=== PATIENT | male | born 1980 | race Caucasian/White ===

== ENCOUNTER → 2017-01-02 | Outpatient (CLI) | payer BC ==
[2017-01-02 19:39] LABS: BASO % 0.7 % (0.0-1.0); EOS # 0.1 K/mm3 (0.0-0.50); LARGE UNSTAINED CELL # 0.2 K/mm3 (0.0-0.4); LARGE UNSTAINED CELL % 2.6 % (0.0-4.0); LYMPH # 2.1 K/mm3 (1.5-4.5); LYMPH % 29.4 % (24.0-44.0); MEAN CORPUSCULAR HEMOGLOBIN 30.5 pg (27.0-33.0); MEAN CORPUSCULAR HGB CONC 35.1 g/dl (32.0-36.5); MEAN CORPUSCULAR VOLUME 86.7 fl (80.0-96.0); MONO # 0.3 K/mm3 (0.0-0.8); MONO % 4.7 % (0.0-5.0); NEUTROPHILS # 4.2 K/mm3 (1.8-7.7); NEUTROPHILS % 60.7 % (36.0-66.0); PLATELET COUNT, AUTOMATED 182 k/mm3 (150-450); RED CELL DISTRIBUTION WIDTH 12.8 % (11.5-14.5)
[2017-01-02 20:28] LABS: ALBUMIN 4.5 GM/DL (3.2-5.2); ALBUMIN/GLOBULIN RATIO 1.61 (1.00-1.93); ALKALINE PHOSPHATASE 77 U/L (45-117); ALT/SGPT 61 U/L (12-78); ANION GAP 7 MEQ/L (8-16); AST/SGOT 33 U/L (15-37); BILIRUBIN,TOTAL 0.8 MG/DL (0.2-1.0); BLOOD UREA NITROGEN 24 MG/DL (7-18); CALCIUM LEVEL 9.2 MG/DL (8.5-10.1); CARBON DIOXIDE LEVEL 30 MEQ/L (21-32); CHLORIDE LEVEL 106 MEQ/L (98-107); CREATININE FOR GFR 0.81 MG/DL (0.70-1.30); GLOMERULAR FILTRATION RATE > 60.0 (>60); GLUCOSE, FASTING 94 MG/DL (70-105); POTASSIUM SERUM 3.9 MEQ/L (3.5-5.1); SODIUM LEVEL 143 MEQ/L (136-145); TOTAL PROTEIN 7.3 GM/DL (6.4-8.2)
== END ==
LOC: M WUC 17:38
PROVIDERS: ATTEND Physician Assistant
DX: R51 Headache (principal)

== ENCOUNTER → 2017-01-10 | Outpatient (CLI) | payer BC ==
--- NOTE | 2017-01-10 08:59 | REP ---
CT Head without contrast HISTORY: Headache COMPARISON: 12/27/2012 There is no intraparenchymal hemorrhage, acute infarct, mass or midline shift. The ventricular system is normal in appearance. There is no extra cerebral collection. There is no fracture. A retention cyst or polyp is present in the left sphenoid sinus. Mucosal thickening is present in the right ethmoid sinus. Impression: There is no intracranial lesion. Signed by Raffi Adames MD 01/10/2017 08:50 A
--- NOTE | 2017-01-10 10:56 | REP ---
Right upper quadrant sonography: History: Right upper quadrant pain. Comparison CT study of the abdomen is from December 27, 2012. Comparison sonography September 04, 2015. The comparison ultrasound showed a possible subcutaneous lipoma 9 mm in diameter. Findings: A 10 x 6 x 10 mm slightly hyperechoic subcutaneous nodule is again seen near the midline identical to its appearance in the September 17, 2015 study. This may be a small subcutaneous dermal lipoma. It does not appear to be a cyst. Right upper quadrant sonography demonstrates a normal sized homogeneous liver. A normal sized thin-walled gallbladder is seen without evidence of stone or polyp. Common bile duct is normal measuring 0.2 cm in greatest diameter. There is no abnormality on limited views of the pancreas. No evidence of ascites or right renal abnormality is seen. The right kidney measures 12.8 x 5.4 x 5.1 cm. Impression: 1. Small stable hyperechoic subcutaneous nodule in the midline consistent with lipoma. 2. Otherwise negative right upper quadrant sonography. Signed by Jr Sommers MD 01/10/2017 11:19 A
== END ==
LOC: M RAD 07:52
PROVIDERS: ATTEND Physician Assistant
DX: R51 Headache (principal); D17.5 Benign lipomatous neoplasm of intra-abdominal organs

== ENCOUNTER → 2017-01-14 | Outpatient (REF) | payer BC | LOC: M LAB REF 09:40 | PROVIDERS: ATTEND Physician Assistant | DX: L03.031 Cellulitis of right toe (principal) ==

== ENCOUNTER 2017-07-22 14:34 | Emergency (ER) | payer BC | END 2017-07-22 15:22 | disposition left against medical advice (07) | LOC: M ED 14:34 | DX: Z53.21 Procedure and treatment not carried out due to patient leaving prior to being seen by health care provider (principal) ==

== ENCOUNTER → 2017-07-23 | Outpatient (CLI) | payer OTHER | LOC: M LRY 19:59 | DX: M25.511 Pain in right shoulder (principal); M79.644 Pain in right finger(s); M54.5 Low back pain; M51.36 Other intervertebral disc degeneration, lumbar region; M51.37 Other intervertebral disc degeneration, lumbosacral region | CPT/HCPCS: 72110 ==

== ENCOUNTER → 2021-04-12 | Outpatient (CLI) | payer BC ==
--- NOTE | 2021-04-12 11:32 | REP ---
INDICATION: SOFT TISSUE LUMP RT UPPER ABD COMPARISON: None. TECHNIQUE: Limited directed real time sanchez scale ultrasound examination using linear high-frequency transducer. FINDINGS: Directed ultrasound examination along the upper abdomen at the site of palpable mass to the right of midline demonstrates 1.9 x 1.8 x 0.8 cm ovoid heterogeneous/hyperechoic lesion likely representing small benign lipoma. IMPRESSION: Palpable mass likely represents small benign appearing lipoma. <Electronically signed by Michael Krishnan > 04/12/21 [id number]
== END ==
LOC: M RAD 10:28
PROVIDERS: ATTEND Internal Medicine
DX: D17.39 Benign lipomatous neoplasm of skin and subcutaneous tissue of other sites (principal)

== ENCOUNTER → 2021-10-17 | Outpatient (CLI) | payer BC | LOC: M WUC 10:26 | PROVIDERS: ATTEND Physician Assistant Medical | DX: R10.12 Left upper quadrant pain (principal) ==

== ENCOUNTER → 2021-11-05 | Outpatient (CLI) | payer BC, OTHER | LOC: M PAIN 08:30 | PROVIDERS: ATTEND Nurse Practitioner Family | DX: G89.29 Other chronic pain (principal); M54.6 Pain in thoracic spine; K22.70 Barrett's esophagus without dysplasia; K21.9 Gastro-esophageal reflux disease without esophagitis; G47.00 Insomnia, unspecified; R51.9 Headache, unspecified; Z79.899 Other long term (current) drug therapy; Z91.030 Bee allergy status; Z88.6 Allergy status to analgesic agent ==

== ENCOUNTER → 2022-04-08 | Outpatient (CLI) | payer BC, OTHER | LOC: M PAIN 11:45 | PROVIDERS: ATTEND Nurse Practitioner Family | DX: M79.18 Myalgia, other site (principal); K22.70 Barrett's esophagus without dysplasia; K21.9 Gastro-esophageal reflux disease without esophagitis; G47.00 Insomnia, unspecified; R51.9 Headache, unspecified; R49.0 Dysphonia; Z87.81 Personal history of (healed) traumatic fracture; Z91.030 Bee allergy status; Z79.899 Other long term (current) drug therapy; Z88.6 Allergy status to analgesic agent ==

== ENCOUNTER → 2022-07-15 | Outpatient (CLI) | payer BC, OTHER ==
[~2022-07-15] MED LIST: BUPIVACAINE HCL 0.25% 10ML VIAL As Ordered ONE; BUPIVACAINE HCL 0.25% 30ML VIAL As Ordered ONE; NORCO, ANEXSIA 5/325MG TABLET (HYDROcodone/ACETAMINOPHEN) As Ordered ONE; TRIAMCINOLONE ACETONIDE SUSP 40MG/ML 1ML VIAL As Ordered ONE; diazePAM 5MG TABLET As Ordered ONE
== END ==
LOC: M PAIN 10:00
PROVIDERS: ATTEND Anesthesiology
DX: M79.18 Myalgia, other site (principal); K22.70 Barrett's esophagus without dysplasia; K21.9 Gastro-esophageal reflux disease without esophagitis; G47.00 Insomnia, unspecified; R51.9 Headache, unspecified; R49.0 Dysphonia; Z79.899 Other long term (current) drug therapy; Z88.6 Allergy status to analgesic agent; Z91.030 Bee allergy status

== ENCOUNTER → 2022-07-15 | Outpatient (CLI) | payer BC, OTHER | LOC: M LABSMTC 10:27 | PROVIDERS: ATTEND Anesthesiology | DX: Z01.812 Encounter for preprocedural laboratory examination (principal) ==

== ENCOUNTER → 2022-08-19 | Outpatient (CLI) | payer BC, OTHER | LOC: M PAIN 09:30 | PROVIDERS: ATTEND Nurse Practitioner Family | DX: M79.10 Myalgia, unspecified site (principal); G89.29 Other chronic pain; K21.9 Gastro-esophageal reflux disease without esophagitis; Z88.6 Allergy status to analgesic agent; Z91.030 Bee allergy status; Z79.899 Other long term (current) drug therapy ==

== ENCOUNTER → 2022-09-02 | Outpatient (CLI) | payer BC, OTHER | LOC: M PAIN 11:45 | PROVIDERS: ATTEND Nurse Practitioner Family | DX: M79.18 Myalgia, other site (principal); K22.70 Barrett's esophagus without dysplasia; K21.9 Gastro-esophageal reflux disease without esophagitis; G89.29 Other chronic pain; G47.00 Insomnia, unspecified; R51.9 Headache, unspecified; M54.9 Dorsalgia, unspecified; Z79.899 Other long term (current) drug therapy; Z88.6 Allergy status to analgesic agent; Z91.030 Bee allergy status ==

== ENCOUNTER → 2022-10-04 | Outpatient (CLI) | payer BC, OTHER | LOC: M PAIN 08:45 | PROVIDERS: ATTEND Nurse Practitioner Family | DX: M79.10 Myalgia, unspecified site (principal); G89.29 Other chronic pain; K21.9 Gastro-esophageal reflux disease without esophagitis; Z88.6 Allergy status to analgesic agent; Z91.030 Bee allergy status; Z79.899 Other long term (current) drug therapy ==

== ENCOUNTER → 2022-12-20 | Outpatient (CLI) | payer BC, OTHER | LOC: M PAIN 10:00 | PROVIDERS: ATTEND Nurse Practitioner Family | DX: M79.10 Myalgia, unspecified site (principal); G89.29 Other chronic pain; K22.70 Barrett's esophagus without dysplasia; K21.9 Gastro-esophageal reflux disease without esophagitis; M54.9 Dorsalgia, unspecified; G47.00 Insomnia, unspecified; R49.0 Dysphonia; Z79.899 Other long term (current) drug therapy; Z88.6 Allergy status to analgesic agent; Z91.030 Bee allergy status ==

== ENCOUNTER → 2023-03-21 | Outpatient (CLI) | payer BC, OTHER | LOC: M PAIN 08:45 | PROVIDERS: ATTEND Nurse Practitioner Family | DX: M79.18 Myalgia, other site (principal); G89.29 Other chronic pain; K22.70 Barrett's esophagus without dysplasia; K21.9 Gastro-esophageal reflux disease without esophagitis; G47.00 Insomnia, unspecified; Z79.899 Other long term (current) drug therapy; Z88.6 Allergy status to analgesic agent; Z91.030 Bee allergy status; Z87.81 Personal history of (healed) traumatic fracture ==

== ENCOUNTER → 2023-05-16 | Outpatient (CLI) | payer BC, OTHER ==
[~2023-05-16] MED LIST changes: -BUPIVACAINE HCL 0.25% 10ML VIAL As Ordered ONE; -BUPIVACAINE HCL 0.25% 30ML VIAL As Ordered ONE
== END ==
LOC: M PAIN 10:15
PROVIDERS: ATTEND Anesthesiology
DX: M79.18 Myalgia, other site (principal); K22.70 Barrett's esophagus without dysplasia; K21.9 Gastro-esophageal reflux disease without esophagitis; G47.00 Insomnia, unspecified; R49.0 Dysphonia; Z79.899 Other long term (current) drug therapy; Z88.6 Allergy status to analgesic agent; Z91.030 Bee allergy status
CPT/HCPCS: 20552; J0665; J3301

== ENCOUNTER → 2025-01-07 | Outpatient (CLI) | payer BC | LOC: M RAD 10:45 | PROVIDERS: ATTEND Physician Assistant Medical | DX: N28.1 Cyst of kidney, acquired (principal) ==

== ENCOUNTER → 2025-03-21 | Outpatient (REF) | payer BC | LOC: M LAB REF 12:35 | PROVIDERS: ATTEND Nurse Practitioner Family | DX: L02.411 Cutaneous abscess of right axilla (principal) ==